=== PATIENT | female | born 1955 | race Caucasian/White ===

== ENCOUNTER 2024-06-30 09:35 | Emergency (ER) | payer BC, MEDICAID ==
[~2024-06-30] VITALS: Ht 170.2 cm; Wt 68.2 kg
[~2024-06-30 09:35] MED LIST: ALBU18HF2 INH; ALBU8.5H17 INH; CITA20TA28 PO; CYCL-394 PO; DILAUDID PAIN PUMP; IBUP-1984 PO; LEVO50TA67 PO; LYR25C PO; METF500T PO; PHEN100C4 PO; QUET-1 PO; ROSU5TAB PO; SOLI10TA2 PO; UMEC62.5 INH; VARE0.5T PO
[2024-06-30 09:40] VITALS: BP 115/64; PULSE 100; TEMP 98.6; O2SAT 87
[2024-06-30 12:18] VITALS: RESP 16
[2024-06-30] MEDS: ketorolac trometh 30MG/ML vial 30 MG/ML VIAL IV ONE (12:18)
== END 2024-06-30 14:30 | disposition home or self-care (01) ==
LOC: ER 09:36
DX: R07.89 Other chest pain (principal); F17.210 Nicotine dependence, cigarettes, uncomplicated; F10.90 Alcohol use, unspecified, uncomplicated; J45.909 Unspecified asthma, uncomplicated; J44.9 Chronic obstructive pulmonary disease, unspecified; K21.9 Gastro-esophageal reflux disease without esophagitis; E11.9 Type 2 diabetes mellitus without complications; G89.29 Other chronic pain; M54.9 Dorsalgia, unspecified; F32.A Depression, unspecified; Z88.8 Allergy status to other drugs, medicaments and biological substances; Z88.1 Allergy status to other antibiotic agents; Z91.030 Bee allergy status; Z91.018 Allergy to other foods; Z79.899 Other long term (current) drug therapy; Z79.84 Long term (current) use of oral hypoglycemic drugs; Z79.1 Long term (current) use of non-steroidal anti-inflammatories (NSAID); Z86.73 Personal history of transient ischemic attack (TIA), and cerebral infarction without residual deficits; Z90.49 Acquired absence of other specified parts of digestive tract; Z90.710 Acquired absence of both cervix and uterus
CPT/HCPCS: 71046; 96374; 99283; J1885